=== PATIENT | female | born 1955 | race Caucasian/White ===

== ENCOUNTER 2018-04-12 08:45 | Outpatient (CLI) | payer OTHER ==
[2018-04-12 14:04] LABS: BILIRUBIN,URINE NEGATIVE (NEGATIVE); CLARITY,URINE CLEAR (CLEAR); GLUCOSE, URINE (UA) NEGATIVE (NEGATIVE); KETONES,URINE (UA) NEGATIVE (NEGATIVE); LEUKOCYTE ESTERASE, URINE NEGATIVE (NEGATIVE); NITRITE,URINE NEGATIVE (NEGATIVE); OCCULT BLOOD,URINE TRACE-LYSE (NEGATIVE); PH,URINE 5.5 PH (5.0-7.5); PROTEIN,URINE NEGATIVE (NEGATIVE); UROBILINOGEN,URINE 0.2 (NORMAL) E.U./dL (NORMAL)
== END 2018-04-12 23:59 | disposition home or self-care (01) ==
LOC: LAB.R 08:45
PROVIDERS: ATTEND Physician Assistant Medical
DX: R31.9 Hematuria, unspecified (principal)
CPT/HCPCS: 81001; 81003; 87086

== ENCOUNTER 2018-05-28 21:34 | Outpatient (CLI) | payer BC ==
--- NOTE | 2018-05-29 03:36 | Ultrasound Report ---
Reason: ABNORMAL FINDINGS ON DIAGNOSTIC IMAGING Procedure Date: 05/28/2018 Accession Number: [id number] / [id number] Procedure: US - Pelvic w/Transvaginal CPT Code: FULL RESULT: EXAM: PELVIC ULTRASOUND EXAM DATE: 05/28/2018 11:55 PM. CLINICAL HISTORY: ABNORMAL FINDINGS ON DIAGNOSTIC IMAGING. COMPARISON: Outside CT report, 04/15/2018. TECHNIQUE: Realtime transabdominal pelvic scan performed to identify the uterus and adnexa and as an overview of other pelvic structures, followed by transvaginal scan to provide greater detail of the uterus and adnexa, with static image documentation. FINDINGS: Uterus: 7.2 x 3.9 x 3.3 cm, volume 49 cc. Anteverted position. Heterogeneous echotexture. Masses: Posterior intramural fibroid measuring 1.1 x 1.1 x 0.9 cm. Anterior submucosal fibroid measuring 1.3 x 1.3 x 1.4 cm. Anterior fundal submucosal fibroid measuring 0.5 x 0.6 x 0.7 cm. Endometrium: 9.9 mm. Small cystic focus in the endometrium measuring 5.0 x 2.7 cm. Cervix: Nabothian cysts. Right Ovary: 2.5 x 2.1 x 1.9 cm, volume 5.2 cc. Simple cyst measuring 2.1 x 1.6 x 1.5 cm. Normal Doppler flow signal seen in the ovary. Left Ovary: 2.1 x 1.6 x 1.2 cm, volume 2.1 cc. Normal echotexture and blood flow. Free Fluid: Small amount. Other: None. IMPRESSION: 1. Endometrium appears mildly thickened for postmenopausal patient. 2. Small cystic focus in the endometrium. No endometrial mass identified. 3. Small simple cyst in the right ovary. 4. Uterine fibroids measuring up to 1.4 cm. 5. Small amount of free fluid in the pelvis. [facility]
== END 2018-05-28 21:35 | disposition home or self-care (01) ==
LOC: DI 21:34
PROVIDERS: ATTEND Specialist
DX: R93.89 Abnormal findings on diagnostic imaging of other specified body structures (principal); N85.8 Other specified noninflammatory disorders of uterus; N83.291 Other ovarian cyst, right side; D25.1 Intramural leiomyoma of uterus; D25.0 Submucous leiomyoma of uterus; R18.8 Other ascites
CPT/HCPCS: 76830; 76856